=== PATIENT | female | born 1955 | race Caucasian/White ===

== ENCOUNTER 2019-03-09 02:19 | Emergency (ER) | payer OTHER ==
[2019-03-09 02:50] VITALS: BP 109/72; TEMP 97.9; BMI 18.3
--- NOTE | 2019-03-09 04:16 | PDOC ---
Attending Attestation - Resident Resident Name: Charles Kong - ED Attending Attestation I have performed the following: I have examined & evaluated the patient, The case was reviewed & discussed with the resident, I agree w/resident's findings & plan, Exceptions are as noted - HPI HPI: 03/09/19 04:11 63 F with h/o HTN presents to ED with bug bite to her R ankle. Pt states that she first noticed the bite 5 days ago. It initially became very red and swollen. Pt went to her PMD, who started her on keflex, which she has been taking for 3 days. Pt states the redness and swelling subsided significantly. HOwever, today, pt was wearing tight boots, which caused the area to become more red and inflamed. Since pt took the shoes off, the redness and swelling has subsided. Pt now states the bite looks much better than before. Denies F/C. Denies any pain with ambulation or ranging her ankle. - Physicial Exam PE: 03/09/19 04:14 "GENERAL: Awake, alert, and fully oriented, in no acute distress. HEAD: No signs of trauma EYES: PERRLA, EOMI, sclera anicteric, conjunctiva clear ENT: Auricles normal inspection, hearing grossly normal, nares patent, oropharynx clear without exudates. Moist mucosa NECK: Nontender, no stepoffs, Normal ROM, supple, no lymphadenopathy, JVD, or masses LUNGS: Breath sounds equal, clear to auscultation bilaterally. No wheezes, and no crackles HEART: Regular rate and rhythm, normal S1 and S2, no murmurs, rubs or gallops ABDOMEN: Soft, nontender, normoactive bowel sounds. No guarding, no rebound. No masses EXTREMITIES: Normal range of motion, no edema. No clubbing or cyanosis. No cords, erythema, or tenderness NEUROLOGICAL: Cranial nerves II through XII intact. 5/5 strength and sensation in all extremities, Normal speech, normal gait, normal cerebellar function SKIN: + punctate well-healed bite to lateral R ankle, mild surrounding erythema with no warmth or induration - Medical Decision Making 03/09/19 04:14 63 F with bug bite to R ankle, likely superinfected, now improving with keflex. Wound looks well healed today, with only minimal erythema surrounding. Suspect flare up today was 2/2 local irritation due to pt's footwear. - Butch with skin marker - Continue abx - Return precautions Pt is well appearing, with normal vitals. Clinically stable for DC at this time. I discussed the physical exam findings, ancillary test results and final diagnoses with the patient. I answered all of the patient's questions. The patient was satisfied with the care received and felt comfortable with the discharge plan and treatment plan. The patient agrees to follow up with the primary care physician within 24-72 hours.
--- NOTE | 2019-03-09 04:17 | PDOC ---
History of Present Illness - General Chief Complaint: Bite Stated Complaint: ANKLE SWELLING Time Seen by Provider: 03/09/19 03:44 History Source: Patient Exam Limitations: No Limitations Past History - Past Medical History Allergies/Adverse Reactions: Allergies Allergy/AdvReac Type Severity Reaction Status Date / Time No Known Allergies Allergy Verified 03/09/19 02:50 COPD: No - Psycho Social/Smoking Cessation Hx Smoking History: Never smoked Hx Alcohol Use: No Drug/Substance Use Hx: No Review of Systems - Review of Systems Able to Perform ROS?: Yes Is the patient limited Guatemalan proficient: No *Physical Exam - Vital Signs Last Vital Signs Temp Pulse Resp BP Pulse Ox 97.9 F 85 19 109/72 99 03/09/19 02:20 03/09/19 02:20 03/09/19 02:20 03/09/19 02:20 03/09/19 02:20 Medical Decision Making - Medical Decision Making 03/09/19 04:10 HPI: 63F HTN c/o increased redness at site of mosquito bite. Pt was in [place] where she was bitten on the right lateral ankle. Went to her PMD the following day where the PMD noticed some streaking and started Keflex. Pt has been taking Keflex as prescribed since 03/05/19. Redness decreased after abx. Pt noticed tonight that the redness slightly increased and was concerned. No pain, warmth, f/c. No h/o DM. ROS: CONSTITUTIONAL: Denies F / C RESP: Denies SOB CARD: Denies chest pain GI: Denies N / V, abdominal pain SKIN: Endorses mosquito bite NEURO: Denies numbness, tingling, weakness, pain PE: GEN: Well appearing, NAD, AAOx3 HEENT: NC/AT, EOMI, PERRLA. No facial asymmetry. Normal voice. Supple neck w/ FROM. CV: S1/S2, RRR, no m/r/g LUNG: CTAB, no wheezes, crackles, rales, rhonchi. GI: soft, ndnt, +BS, no guarding, no rebound. No masses. Neg CVAT b/l. EXTREMITIES: No swelling or warmth of the right lateral ankle at the affected area. There is a small region of erythema at the lateral ankle w/o streaking. FROM of the RLE. SKIN: warm, dry, normal turgor PSYCH: anxious affect NEURO: Moving all extremities well. Ambulating w/ normal gait. MDM: 63F c/o redness at mosquito bite area on Keflex Likely 2/2 irritation of patient's tight socks/boots - will alycia erythematous area - advised patient to continue abx and see PCP - return precautions provided Discharge - Discharge Information Problems reviewed: Yes Clinical Impression/Diagnosis: Mosquito bite Qualifiers: Encounter type: subsequent encounter Qualified Code(s): W57.XXXD - Bitten or stung by nonvenomous insect and other nonvenomous arthropods, subsequent encounter Condition: Fair Disposition: HOME - Admission No - Follow up/Referral Referrals: Marita Humphreys [Primary Care Provider] - - Patient Discharge Instructions Patient Printed Discharge Instructions: DI for Insect Bites and Stings Additional Instructions: Continue your antibiotics as prescribed. We have marked the affected area, keep an eye on the area. If the redness spreads outside of it or starts streaking return to the Emergency Department. Follow up with your primary care doctor regarding this Emergency Department visit in the next 5-7 days. IMMEDIATELY RETURN TO THE NEAREST EMERGENCY DEPARTMENT IF YOU EXPERIENCE: - worsening symptoms - redness spreads outside marked area - affected area becomes hot, swollen, and painful - ANYTHING THAT CONCERNS YOU - Post Discharge Activity
[2019-03-09 04:29] VITALS: PULSE 88
== END 2019-03-09 04:31 | disposition home or self-care (01) ==
LOC: JER 02:19
DX: S90.561A Insect bite (nonvenomous), right ankle, initial encounter (principal); W57.XXXA Bitten or stung by nonvenomous insect and other nonvenomous arthropods, initial encounter; Y93.89 Activity, other specified; Y92.89 Other specified places as the place of occurrence of the external cause; Y99.8 Other external cause status
CPT/HCPCS: 99281-25